=== PATIENT | female | born 1995 | race Caucasian/White ===

== ENCOUNTER 2017-10-03 21:52 | Emergency (ER) | payer OTHER ==
[2017-10-03 22:16] VITALS: BP 119/66
[2017-10-03] MEDS ORDERED: MELOXICAM 7.5 MG TABLET PO STA (22:24)
--- NOTE | 2017-10-03 22:27 | ED Physician Documentation ---
PD HPI LOWER EXT INJURY - Stated complaint Stated Complaint: R KNEE PX/SWELLING - Chief complaint Chief Complaint: Ext Problem - History obtained from History obtained from: Patient - History of Present Illness PD HPI LOW EXT INJURY LOCATION: Right, Knee (She has had about 4 days of anterolateral right knee pain worse with bending and she feels like she feels popping and creaking in it. It was exacerbated today because she did a lot of moving around. There was no specific injury. No fevers.) Review of Systems Constitutional: denies: Fever, Chills GI: denies: Abdominal Pain, Nausea, Vomiting : denies: Now EGA PD PAST MEDICAL HISTORY - Past Medical History Past Medical History: No - Past Surgical History Past Surgical History: No - Present Medications Home Medications: Ambulatory Orders Medication Instructions Recorded Confirmed Meloxicam [Mobic] 7.5 mg PO BIDWM PRN #15 tablet 10/03/17 - Social History Does the pt smoke?: No Smoking Status: Never smoker Does the pt drink ETOH?: No Does the pt have substance abuse?: No - Immunizations Immunizations are current?: Yes - POLST Patient has POLST: No PD ED PE NORMAL - Vitals Vital signs reviewed: Yes - General General: Alert and oriented X 3, No acute distress - Extremities Extremities: Other (Right knee is without bony tenderness, she does have crepitance behind the patella with flexion and extension. There is no effusion , no warmth or redness. Her gait is only very slightly limping, but pushes off well and flexes normally.) - Neuro Neuro: Alert and oriented X 3, Normal speech Results - Vitals Vitals: Vital Signs - 24 hr 10/03/17 22:14 Temperature 36.3 C L Heart Rate 75 Respiratory 16 Rate Blood Pressure 119/66 O2 Saturation 98 Oxygen O2 Source Room air PD MEDICAL DECISION MAKING - Sepsis Event Vital Signs: Vital Signs - 24 hr 10/03/17 22:14 Temperature 36.3 C L Heart Rate 75 Respiratory 16 Rate Blood Pressure 119/66 O2 Saturation 98 Oxygen O2 Source Room air Departure - Departure Disposition: 01 Home, Self Care Clinical Impression: Patellofemoral syndrome of right knee Condition: Good Record reviewed to determine appropriate education?: Yes Instructions: Patellofemoral Syndrome Prescriptions: Meloxicam [Mobic] 7.5 mg PO BIDWM PRN #15 tablet PRN Reason: Pain Comments: Call your doctor to arrange a follow-up appointment, make the next available appointment. In the interim, return anytime if worse or if new symptoms develop.
== END 2017-10-03 22:37 | disposition home or self-care (01) ==
LOC: ED 21:52
DX: M22.2X1 Patellofemoral disorders, right knee (principal)
CPT/HCPCS: 99283; A9270

== ENCOUNTER 2017-10-10 18:34 | Emergency (ER) | payer OTHER ==
[2017-10-10 20:20] LABS: BILIRUBIN,URINE NEGATIVE (NEGATIVE); GLUCOSE, URINE (UA) NEGATIVE (NEGATIVE); KETONES,URINE (UA) NEGATIVE (NEGATIVE); LEUKOCYTE ESTERASE, URINE NEGATIVE (NEGATIVE); NITRITE,URINE NEGATIVE (NEGATIVE); OCCULT BLOOD,URINE TRACE-INTA (NEGATIVE); PROTEIN,URINE NEGATIVE (NEGATIVE); UROBILINOGEN,URINE 0.2 (NORMAL) E.U./dL (NORMAL)
[2017-10-10 20:21] LABS: CLARITY,URINE CLEAR (CLEAR)
[2017-10-10 20:22] LABS: HCG UR QUAL NEGATIVE
--- NOTE | 2017-10-10 20:25 | ED Physician Documentation ---
PD HPI SYNCOPE - Stated complaint Stated Complaint: FAINTED - Chief complaint Chief Complaint: Neuro - History obtained from History obtained from: Patient, Family - History of Present Illness Timing - onset: Today Duration: Seconds Preceding symptoms: Light headed Associated symptoms: No: Seizure, Incontinant of urine, Headache, Vision changes , Chest pain, Palpitations, Diaphoresis Contributing factors: Just stood up Similar symptoms before: Has not had sx before Recently seen: Not recently seen - Additional information Additional information: Patient is a 22 year old female with no significant past medical history who is presenting to the emergency department for near syncopal episode. patient states that she was about to go to the bathroom, she was bending over to unzip her pants. When she stood up she got light headed and fell backwards but was able to catch herself. patient never actually lost consciousness. patient states that she had a [place] cup of water yesterday, and had one bottle of water today and mainly drank coffee. Review of Systems Ten Systems: 10 systems reviewed and negative PD PAST MEDICAL HISTORY - Past Medical History Past Medical History: No - Past Surgical History Past Surgical History: No - Present Medications Home Medications: Ambulatory Orders Medication Instructions Recorded Confirmed Meloxicam [Mobic] 7.5 mg PO BIDWM PRN #15 tablet 10/03/17 - Allergies Allergies/Adverse Reactions: Allergies Allergy/AdvReac Type Severity Reaction Status Date / Time No Known Drug Allergies Allergy Verified 10/03/17 22:32 - Social History Does the pt smoke?: No Smoking Status: Never smoker Does the pt drink ETOH?: No Does the pt have substance abuse?: No - Immunizations Immunizations are current?: Yes - POLST Patient has POLST: No PD ED PE NORMAL - Vitals Vital signs reviewed: Yes - General General: Alert and oriented X 3, No acute distress, Well developed/nourished - HEENT HEENT: Atraumatic, PERRL, Moist mucous membranes - Neck Neck: Supple, no meningeal sign, No JVD - Cardiac Cardiac: RRR, No murmur - Respiratory Respiratory: No respiratory distress, Clear bilaterally - Abdomen Abdomen: Soft, Non tender, Non distended - Derm Derm: Normal color, Warm and dry, No rash - Extremities Extremities: No deformity, No edema, No calf tenderness / cord - Neuro Neuro: Alert and oriented X 3, No motor deficit, No sensory deficit, Normal speech Eye Opening: Spontaneous Motor: Obeys Commands Verbal: Oriented GCS Score: 15 - Psych Psych: Normal mood Results - Vitals Vitals: Vital Signs - 24 hr 10/10/17 10/10/17 10/10/17 18:42 19:40 20:40 Temperature 36.4 C L Heart Rate 66 60 64 Respiratory 16 20 16 Rate Blood Pressure 124/78 116/96 H 111/71 O2 Saturation 98 98 99 Oxygen O2 Source Room air - EKG (time done) 1845 Rate: Rate (enter#) (58) Rhythm: NSR [place]: Normal Intervals: Normal [place] QRS: Normal Ischemia: Normal ST segments - Labs Labs: Laboratory Tests 10/10/17 20:10 Urine Color YELLOW Urine Clarity CLEAR Urine pH 6.0 Ur Specific [place] 1.010 Urine Protein NEGATIVE Urine Glucose (UA) NEGATIVE Urine Ketones NEGATIVE Urine Occult Blood TRACE-INTA Urine Nitrite NEGATIVE Urine Bilirubin NEGATIVE Urine Urobilinogen 0.2 (NORMAL) Ur Leukocyte Esterase NEGATIVE Ur Microscopic Review NOT INDICATED Urine Culture Comments NOT INDICATED Urine HCG, Qual NEGATIVE PD MEDICAL DECISION MAKING - ED course Complexity details: reviewed old records, reviewed results, re-evaluated patient , considered differential, d/w patient ED course: Patient was seen and examined at bedside. Patient was well appearing and in no acute distress. ekg was performed and was within normal limits. Patient's urinalysis was negative. Patient's symptoms were likely vasovagal. patient was asymptomatic while she was in the emergency department for almost two hours. Patient required no further work up and was stable for discharge with outpatient follow up. - Sepsis Event Vital Signs: Vital Signs - 24 hr 10/10/17 10/10/17 10/10/17 18:42 19:40 20:40 Temperature 36.4 C L Heart Rate 66 60 64 Respiratory 16 20 16 Rate Blood Pressure 124/78 116/96 H 111/71 O2 Saturation 98 98 99 Oxygen O2 Source Room air Departure - Departure Disposition: 01 Home, Self Care Clinical Impression: Vasovagal near-syncope Condition: Good Instructions: ED Near Syncope Vasovagal Follow-Up: primary,care provider [Other] - As Needed Comments: Your diagnostics today were within normal limits. It is important that you stay well hydrated and transition slowly. you should follow up with your doctor if these symptoms become more frequent. You may return to the emergency department at any time for new, worsening or uncontrollable symptoms. Discharge Date/Time: 10/10/17 20:45
[2017-10-10 20:49] VITALS: BP 111/71
== END 2017-10-10 20:45 | disposition home or self-care (01) ==
LOC: ED 18:34
DX: R55 Syncope and collapse (principal)
CPT/HCPCS: 81001; 81003; 81025; 87086; 93005; 99283; 99284